=== PATIENT | female | born 1955 | race Caucasian/White ===

== ENCOUNTER → 2020-11-28 14:59 | Outpatient (CLI) | payer MEDICARE, OTHER, SELFPAY ==
--- NOTE | ~2020-11-28 | MM_ITS ---
EXAMINATION: MM screening [facility] HISTORY: Screening mammogram TECHNIQUE: Craniocaudal and mediolateral oblique 3-D tomosynthesis images were obtained and synthetic 2-D images were generated. CAD analysis was submitted and interpreted. COMPARISON: 10/12/2019, 10/02/2018, 09/12/2017 BREAST PARENCHYMAL COMPOSITION: The breasts are heterogeneously dense, which may obscure small masses . FINDINGS: RIGHT BREAST: There is a new 7 mm spiculated mass in the posterior third of the slightly lower breast best appreciated 6 cm from the nipple on the mediolateral oblique view. In addition, there are parti ally imaged enlarged right axillary lymph nodes. LEFT BREAST: There is no evidence of suspicious mass, calcification, or architectural distortion to s uggest malignancy. There has been no significant interval change. IMPRESSION: 1. New right breast mass and right axillary lymphadenopathy. 2. Additional mammographic views and breast and right axillary ultrasound are recommended. BI-RADS Category 0: Incomplete: Needs additional imaging evaluation. Reviewed, dictated and finalized at location A. RUCTIONAL DESIGNER IMPRESSION: 1. New right breast mass and right axillary lymphadenopathy. 2. Additional mammographic views and breast and right axillary ultrasound are r ecommended. BI-RADS Category 0: Incomplete: Needs additional imaging evaluation.
== END ==
DX: Z12.31 Encounter for screening mammogram for malignant neoplasm of breast (principal); R92.8 Other abnormal and inconclusive findings on diagnostic imaging of breast
CPT/HCPCS: 77063; 77067

== ENCOUNTER → 2020-12-16 08:51 | Outpatient (CLI) | payer MEDICARE, OTHER, SELFPAY ==
--- NOTE | ~2020-12-16 | MMUS_ITS ---
EXAMINATION: MM diagnostic mammo unilat RT, US breast RT complete HISTORY: The right breast mass and right axillary adenopathy reported on 11/28/2020 bilateral digital s creening mammogram TECHNIQUE: Additional 3-D tomosynthesis images of were performed and synthetic 2-D images were genera karen. CAD analysis was submitted and interpreted. High resolution breast ultrasound was performed. COMPARISON: bilateral digital screening mammogram FINDINGS: MAMMOGRAPHIC FINDINGS: There is an approximately 6 mm spiculated mass at the central right breast approximately 5 cm deep to the nipple (ML tomosynthesis images 24,25/48). There are enlarged right lymph nodes. ULTRASOUND: No right breast mass is identified but there are several enlarged hypoechoic masses in the right axil la consistent with axillary lymphadenopathy. These are quite vascular on color flow imaging. The larg est measuring up to 3.1 x 1.6 x 3 cm. Additional enlarged nodes measure 2 x 2.4 x 1.8 cm and 1 x 1.4 x 1.4 cm. Ultrasound guided biopsy of the right axillary lymphadenopathy is recommended. Second look right breast ultrasound is recommended at that time to determine if there is a subtle rig ht breast primary malignancy. IMPRESSION: 1. Right axillary lymphadenopathy, suspicious for metastatic right breast cancer. Differential diagno sis includes metastasis from other primary malignancy, lymphoma, leukemia. 2. Ultrasound-guided right axillary lymph node biopsy is recommended, with second look ultrasound of right breast BI-RADS category 4, suspicious findings. Reviewed, dictated and finalized at location A. S RECREATION DIRECTOR IMPRESSION: 1. Right axillary lymphadenopathy, suspicious for metastatic right breast cance r. Differential diagnosis includes metastasis from other primary malignancy, ly mphoma, leukemia. 2. Ultrasound-guided right axillary lymph node biopsy is recommended, with seco nd look ultrasound of right breast BI-RADS category 4, suspicious findings.
== END ==
DX: R92.8 Other abnormal and inconclusive findings on diagnostic imaging of breast (principal)
CPT/HCPCS: 76641; 77065